=== PATIENT | male | born 1950 | race Caucasian/White ===

== ENCOUNTER → 2021-01-28 | Outpatient (CLI) | payer MEDICARE, OTHER ==
--- NOTE | 2021-01-28 13:51 | KCIC ---
MR CERVICAL SPINE WO DATE: 01/28/2021 10:50 AM INDICATION: Reason: LEFT SHOULDER PAIN, CERVICAL RADICULOPATHY. Lt sided neck pain into left shoulde r and down arm x 6 weeks. LUE numbness TECHNIQUE: Multiplanar multisequence magnetic resonance imaging of the cervical spine was performed w ithout administration of intravenous contrast using the standard cervical spine protocol. COMPARISON: Cervical spine radiograph 01/14/2021. FINDINGS: The cervical spine is normally aligned. No acute fracture. Moderate multilevel degenerative disc huma iccation and disc height loss. Multilevel degenerative endplate edema. The spinal cord is normal in signal intensity. On the limited views of the cranial cavity and brain, the cerebellum and marie have normal morphology and signal characteristics. No Chiari malformation. No soft tissue abnormality. Normal signal voids are present in the vertebral arteries. C2-3: No significant spinal canal stenosis or neural foraminal narrowing. C3-4: Disc osteophyte complex. Uncovertebral hypertrophy. Mild left facet arthropathy. Severe bilater al neural foraminal narrowing. Moderate spinal canal stenosis. C4-5: Disc osteophyte complex. Uncovertebral hypertrophy. Mild right and moderate left facet arthropa thy. Moderate to severe right and moderate left neural foraminal narrowing. Moderate spinal canal chidi nosis. C5-6: Disc osteophyte complex. Uncovertebral hypertrophy. Mild facet arthropathy. Moderate bilateral neural foraminal narrowing. Moderate spinal canal stenosis. C6-7: Disc osteophyte complex. Uncovertebral hypertrophy. Mild to moderate right and moderate left ne ural foraminal narrowing. Mild spinal canal stenosis. C7-T1: Mild facet arthropathy. No significant spinal canal stenosis or neural foraminal narrowing. IMPRESSION: Moderate to severe cervical spondylosis, detailed level by level above. Electronically signed by: Santiago Quintana MD (01/28/2021 1:48 PM) [facility]
== END ==
LOC: KCIC MRI 10:37
PROVIDERS: ATTEND Orthopaedic Surgery
DX: M47.23 Other spondylosis with radiculopathy, cervicothoracic region (principal); M48.02 Spinal stenosis, cervical region; M50.30 Other cervical disc degeneration, unspecified cervical region; M25.78 Osteophyte, vertebrae; M25.512 Pain in left shoulder
CPT/HCPCS: 72141